=== PATIENT | female | born 1950 | race Caucasian/White ===

== ENCOUNTER → 2016-12-11 | Outpatient (CLI) | payer MEDICARE ==
[~2016-12-11] MED LIST: ALDACTONE50 MG PO; DIABETA2.5 MG PO; DIOVAN80 M1 PO; GLIPIZIDE10 M2 PO; LEVAQUIN750 M1 PO; NITROFURANTOIN100 M9 PO; OXYCODONE5 M1 PO; PRILOSEC20 MG; PRILOSEC20 MG PO; PROTONIX40 MG/PACK PO; Quinapril HCl20 MG PO; VALSARTAN80 MG PO; XANAX0.5 MG PO
[2016-12-11 11:05] LABS: BASO % 0.7 % (0.0-1.0); EOS # 0.1 10*3/uL (0.0-0.4); EOS % 2.4 % (1.0-4.0); HEMOGLOBIN 12.9 g/dl (12.0-16.0); LYMPH # 2.2 10*3/uL (1.3-4.4); LYMPH % 38.3 % (27.0-41.0); MEAN CELL VOLUME 86.2 fl (81.0-99.0); MEAN CORPUSCULAR HGB 29.3 pg (27.0-31.0); MEAN CORPUSCULAR HGB CONC 33.9 g/dl (33.0-37.0); MEAN PLATELET VOLUME 9.6 fl (9.6-12.3); MONO # 0.3 10*3/uL (0.1-1.0); MONO % 5.9 % (3.0-9.0); NEUT % 52.4 % (47.0-73.0); PLATELET COUNT AUTOMATED 233 10*3/uL (130-400); RED BLOOD COUNT 4.41 10*6/uL (4.10-5.10); RED CELL DISTRI WIDTH 12.9 % (0-14.5); WHITE BLOOD COUNT 5.8 10*3/uL (4.8-10.8)
[2016-12-11 11:21] LABS: HEMOGLOBIN A1c 8.1 % (4.8-5.6)
[2016-12-11 11:38] LABS: ALBUMIN 3.7 gm/dl (3.1-4.5); ALKALINE PHOSPHATASE 106 U/L (45-117); BILIRUBIN, DIRECT < 0.1 mg/dL (0.0-0.2); BILIRUBIN, TOTAL 0.4 mg/dl (0.2-1.0); BUN 15 mg/dl (7-24); CARBON DIOXIDE 25 mmol/L (21-32); CHLORIDE 109 mmol/L (98-107); EST GLOM FILT AFRICAN AMERICAN > 60 ml/min; GLUCOSE 205 mg/dL (65-99); POTASSIUM 4.8 mmol/L (3.5-5.1); SGOT/AST 36 IU/L (3-35); SGPT/ALT 53 U/L (12-78); SODIUM 141 mmol/L (136-145); TOTAL PROTEIN 6.9 gm/dL (6.4-8.2)
== END | disposition home or self-care (01) ==
LOC: LAB 10:40
PROVIDERS: Family Medicine
DX: R79.89 Other specified abnormal findings of blood chemistry (principal); E11.9 Type 2 diabetes mellitus without complications

== ENCOUNTER → 2017-06-07 | Outpatient (CLI) | payer MEDICARE ==
[2017-06-07 10:16] LABS: BASO % 0.6 % (0.0-1.0); EOS # 0.1 10*3/uL (0.0-0.4); EOS % 2.7 % (1.0-4.0); HEMATOCRIT 37.6 % (37.0-47.0); HEMOGLOBIN 12.5 g/dl (12.0-16.0); LYMPH # 1.7 10*3/uL (1.3-4.4); LYMPH % 35.6 % (27.0-41.0); MEAN CELL VOLUME 84.5 fl (81.0-99.0); MEAN CORPUSCULAR HGB 28.1 pg (27.0-31.0); MEAN CORPUSCULAR HGB CONC 33.2 g/dl (33.0-37.0); MEAN PLATELET VOLUME 9.7 fl (9.6-12.3); MONO # 0.3 10*3/uL (0.1-1.0); MONO % 6.9 % (3.0-9.0); NEUT # 2.6 10*3/uL (2.3-7.9); NEUT % 53.6 % (47.0-73.0); PLATELET COUNT AUTOMATED 250 10*3/uL (130-400); RED BLOOD COUNT 4.45 10*6/uL (4.10-5.10); RED CELL DISTRI WIDTH 13.2 % (0-14.5); WHITE BLOOD COUNT 4.8 10*3/uL (4.8-10.8)
[2017-06-07 10:24] LABS: ALKALINE PHOSPHATASE 116 U/L (45-117); BILIRUBIN, DIRECT 0.1 mg/dL (0.0-0.2); BUN 16 mg/dl (7-24); CHLORIDE 108 mmol/L (98-107); CHOLESTEROL 240 mg/dL (<200); CREATININE 0.74 mg/dL (0.55-1.02); HDL CHOLESTEROL 60 mg/dl (40-60); LDL CHOLESTEROL 154 mg/dL (9-159); POTASSIUM 4.3 mmol/L (3.5-5.1); SGOT/AST 24 IU/L (3-35); SGPT/ALT 33 U/L (12-78); SODIUM 143 mmol/L (136-145); THYROXINE (T4) TOTAL 7.4 ug/dl (4.8-13.9); TRIGLYCERIDES 129 mg/dl (<150); VLDL CHOLESTEROL 26 mg/dL (6-40)
== END | disposition home or self-care (01) ==
LOC: LAB 09:28
PROVIDERS: Family Medicine
DX: E11.9 Type 2 diabetes mellitus without complications (principal); I10 Essential (primary) hypertension

== ENCOUNTER → 2017-10-17 | Day surgery (SDC) | payer MEDICARE ==
[~2017-10-17] VITALS: Ht 167.6 cm; Wt 113.4 kg
[~2017-10-17] MED LIST changes: +ADVIL200 M1 PO; +GLIMEPIRIDE2 MG PO; +OXYCODONE HCL10 M1 PO; +TURMERIC 500 M1 EACH PO
--- NOTE | ~2017-10-17 | O ---
[place], [place] OPERATIVE NOTE NAME: AZIZA POLK UNIT #: [id number] ROOM: DOCTOR: CASA BACA MD BIRTHDATE: [birth year] DOS: 10/17/2017 INDENTIFICATION: The patient is a 66-year-old who was presented with chief complaint and personal history of colonic carcinoma, status post resection without chemoradiation. ALLERGIES: IVP DYE. FAMILY HISTORY: Noncontributory. PAST SURGICAL HISTORY: Carpal tunnel, and bilateral total knee. PAST MEDICAL HISTORY: Diabetes, hypertension, back pain. SOCIAL HISTORY: Nonsmoker, nonalcohol consumer. PROCEDURE: Today's procedure part of investigation is colonoscopy plus piecemeal polypectomy. PREMEDICATION: Propofol. SCOPE: Olympus Pixonic colonoscope 10L video. REPORT: After putting the patient in left lateral position and application of lubricant to the scope, the scope was introduced to the rectum and thereafter, under direct visualization, advanced through the length of colon of the base of cecum. Scope was gradually withdrawn from ascending, transverse, descending colon above the splenic flexure, early adenomatous polypoid lesion was identified. Piecemeal polypectomy removed. Air was suctioned out. The patient was extubated, tolerated the procedure well. IMPRESSION: A sessile colonic polyp at the splenic flexure, status post piecemeal polypectomy with a personal history of colonic CA status post resection of the carcinomatous polyp. PLAN AND DISCUSSION: High fiber fruit diet. ACTIVITY: Ad ly. FOLLOWUP: As outpatient routinely with you in office, p.r.n. visit with us. Follow-up colonoscopy in 10 years unless patient has symptoms for which follow-up should be sooner. I thank you very much indeed Dr. George for your kind referral. [place], [place] OPERATIVE NOTE NAME: AZIZA POLK UNIT #: [id number] ROOM: DOCTOR: CASA BACA MD BIRTHDATE: [birth year] CASA BACA MD CM:OPRECORD:OPERATIVE NOTE [id number] CASA BACA MD 10/29/17 1737 interface
[2017-10-17 08:08] VITALS: BP 147/48
[2017-10-17 09:13] VITALS: BP 96/32
[2017-10-17 09:28] VITALS: BP 106/43
[2017-10-17 09:41] VITALS: BP 117/61; BP 99/51
== END | disposition home or self-care (01) ==
LOC: SDC 10-11 08:00
DX: Z12.11 Encounter for screening for malignant neoplasm of colon (principal); K63.5 Polyp of colon; Z85.038 Personal history of other malignant neoplasm of large intestine; E11.9 Type 2 diabetes mellitus without complications; I10 Essential (primary) hypertension; Z98.890 Other specified postprocedural states; Z88.8 Allergy status to other drugs, medicaments and biological substances; Z90.49 Acquired absence of other specified parts of digestive tract; Z80.9 Family history of malignant neoplasm, unspecified; Z87.891 Personal history of nicotine dependence

== ENCOUNTER → 2017-11-19 | Outpatient (CLI) | payer MEDICARE ==
[2017-11-19 12:56] LABS: BASO % 0.7 % (0.0-1.0); EOS # 0.2 10*3/uL (0.0-0.4); EOS % 2.7 % (1.0-4.0); HEMOGLOBIN 12.6 g/dl (12.0-16.0); LYMPH # 2.2 10*3/uL (1.3-4.4); LYMPH % 40.8 % (27.0-41.0); MEAN CELL VOLUME 87.2 fl (81.0-99.0); MEAN CORPUSCULAR HGB 28.9 pg (27.0-31.0); MEAN CORPUSCULAR HGB CONC 33.2 g/dl (33.0-37.0); MONO # 0.4 10*3/uL (0.1-1.0); MONO % 6.9 % (3.0-9.0); NEUT # 2.7 10*3/uL (2.3-7.9); NEUT % 48.7 % (47.0-73.0); PLATELET COUNT AUTOMATED 241 10*3/uL (130-400); RED BLOOD COUNT 4.36 10*6/uL (4.10-5.10); WHITE BLOOD COUNT 5.5 10*3/uL (4.8-10.8)
[2017-11-19 13:08] LABS: ALBUMIN 4.1 gm/dl (3.1-4.5); ALKALINE PHOSPHATASE 90 U/L (45-117); BILIRUBIN, DIRECT 0.1 mg/dL (0.0-0.2); BUN 15 mg/dl (7-24); CHLORIDE 108 mmol/L (98-107); CHOLESTEROL 242 mg/dL (<200); CREATININE 0.76 mg/dL (0.55-1.02); HDL CHOLESTEROL 53 mg/dl (40-60); LDL CHOLESTEROL 162 mg/dL (9-159); POTASSIUM 4.6 mmol/L (3.5-5.1); SGOT/AST 21 IU/L (3-35); SGPT/ALT 34 U/L (12-78); SODIUM 143 mmol/L (136-145); TRIGLYCERIDES 137 mg/dl (<150); VLDL CHOLESTEROL 27 mg/dL (6-40)
== END | disposition home or self-care (01) ==
LOC: LAB 11:23 → RAD 11:30
PROVIDERS: Family Medicine
DX: Z13.820 Encounter for screening for osteoporosis (principal); E11.9 Type 2 diabetes mellitus without complications; E78.00 Pure hypercholesterolemia, unspecified; I10 Essential (primary) hypertension; N64.52 Nipple discharge; Z78.0 Asymptomatic menopausal state; Z85.038 Personal history of other malignant neoplasm of large intestine

== ENCOUNTER → 2017-11-22 | Outpatient (CLI) | payer MEDICARE | END | disposition home or self-care (01) | LOC: RAD 11-19 11:30 → MAMMO 02:59 | DX: N64.52 Nipple discharge (principal) ==

== ENCOUNTER → 2018-03-09 | Outpatient (CLI) | payer MEDICARE ==
[2018-03-09 11:45] LABS: BASO % 0.7 % (0.0-1.0); EOS # 0.2 10*3/uL (0.0-0.4); EOS % 2.8 % (1.0-4.0); HEMATOCRIT 38.5 % (37.0-47.0); LYMPH # 2.2 10*3/uL (1.3-4.4); LYMPH % 37.4 % (27.0-41.0); MEAN CELL VOLUME 85.7 fl (81.0-99.0); MEAN CORPUSCULAR HGB CONC 33.8 g/dl (33.0-37.0); MEAN PLATELET VOLUME 9.4 fl (9.6-12.3); MONO # 0.4 10*3/uL (0.1-1.0); MONO % 7.3 % (3.0-9.0); NEUT % 51.5 % (47.0-73.0); PLATELET COUNT AUTOMATED 235 10*3/uL (130-400); RED BLOOD COUNT 4.49 10*6/uL (4.10-5.10); RED CELL DISTRI WIDTH 12.6 % (0-14.5); WHITE BLOOD COUNT 5.8 10*3/uL (4.8-10.8)
[2018-03-09 12:12] LABS: ALBUMIN 3.9 gm/dl (3.1-4.5); ALKALINE PHOSPHATASE 103 U/L (45-117); BILIRUBIN, DIRECT 0.1 mg/dL (0.0-0.2); BUN 17 mg/dl (7-24); CHLORIDE 108 mmol/L (98-107); CREATININE 0.74 mg/dL (0.55-1.02); POTASSIUM 4.6 mmol/L (3.5-5.1); SGOT/AST 26 IU/L (3-35); SGPT/ALT 39 U/L (12-78); SODIUM 141 mmol/L (136-145); TOTAL PROTEIN 7.1 gm/dL (6.4-8.2)
== END | disposition home or self-care (01) ==
LOC: LAB 11:16
PROVIDERS: Family Medicine
DX: E11.9 Type 2 diabetes mellitus without complications (principal)

== ENCOUNTER → 2018-09-20 | Outpatient (CLI) | payer MEDICARE ==
[2018-09-20 19:21] LABS: BASO % 0.7 % (0.0-1.0); EOS # 0.1 10*3/uL (0.0-0.4); EOS % 2.6 % (1.0-4.0); HEMATOCRIT 37.1 % (37.0-47.0); HEMOGLOBIN 12.2 g/dl (12.0-16.0); LYMPH # 2.3 10*3/uL (1.3-4.4); LYMPH % 42.2 % (27.0-41.0); MEAN CELL VOLUME 89.8 fl (81.0-99.0); MEAN CORPUSCULAR HGB 29.5 pg (27.0-31.0); MEAN CORPUSCULAR HGB CONC 32.9 g/dl (33.0-37.0); MEAN PLATELET VOLUME 10.5 fl (9.6-12.3); MONO # 0.4 10*3/uL (0.1-1.0); MONO % 6.9 % (3.0-9.0); NEUT # 2.5 10*3/uL (2.3-7.9); NEUT % 47.4 % (47.0-73.0); PLATELET COUNT AUTOMATED 255 10*3/uL (130-400); RED BLOOD COUNT 4.13 10*6/uL (4.10-5.10); RED CELL DISTRI WIDTH 13.2 % (0-14.5); WHITE BLOOD COUNT 5.4 10*3/uL (4.8-10.8)
[2018-09-20 19:42] LABS: ALBUMIN 4.1 gm/dl (3.1-4.5); ALKALINE PHOSPHATASE 91 U/L (45-117); BILIRUBIN, DIRECT < 0.1 mg/dL (0.0-0.2); BUN 22 mg/dl (7-24); CHLORIDE 108 mmol/L (98-107); CREATININE 0.93 mg/dL (0.55-1.02); POTASSIUM 3.8 mmol/L (3.5-5.1); SGOT/AST 23 IU/L (3-35); SGPT/ALT 30 U/L (12-78); SODIUM 142 mmol/L (136-145)
== END | disposition home or self-care (01) ==
LOC: LAB 17:19
PROVIDERS: Family Medicine
DX: E11.9 Type 2 diabetes mellitus without complications (principal)

== ENCOUNTER → 2018-12-19 | Outpatient (CLI) | payer MEDICARE | END | disposition home or self-care (01) | LOC: MAMMO 12:36 | DX: N64.52 Nipple discharge (principal) ==

== ENCOUNTER → 2018-12-23 | Outpatient (CLI) | payer MEDICARE ==
[2018-12-23 19:27] LABS: BASO # 0.1 10*3/uL (0.0-0.1); BASO % 1.1 % (0.0-1.0); EOS # 0.2 10*3/uL (0.0-0.4); EOS % 3.5 % (1.0-4.0); HEMATOCRIT 37.5 % (37.0-47.0); HEMOGLOBIN 12.2 g/dl (12.0-16.0); LYMPH # 2.6 10*3/uL (1.3-4.4); LYMPH % 40.4 % (27.0-41.0); MEAN CELL VOLUME 89.5 fl (81.0-99.0); MEAN CORPUSCULAR HGB 29.1 pg (27.0-31.0); MEAN CORPUSCULAR HGB CONC 32.5 g/dl (33.0-37.0); MEAN PLATELET VOLUME 10.2 fl (9.6-12.3); MONO # 0.5 10*3/uL (0.1-1.0); MONO % 7.9 % (3.0-9.0); NEUT % 46.8 % (47.0-73.0); PLATELET COUNT AUTOMATED 253 10*3/uL (130-400); RED BLOOD COUNT 4.19 10*6/uL (4.10-5.10); WHITE BLOOD COUNT 6.5 10*3/uL (4.8-10.8)
[2018-12-23 19:55] LABS: ALBUMIN 4.1 gm/dl (3.1-4.5); ALKALINE PHOSPHATASE 80 U/L (45-117); BILIRUBIN, DIRECT 0.1 mg/dL (0.0-0.2); BUN 13 mg/dl (7-24); CHLORIDE 108 mmol/L (98-107); CREATININE 0.69 mg/dL (0.55-1.02); POTASSIUM 4.4 mmol/L (3.5-5.1); SGOT/AST 16 IU/L (3-35); SGPT/ALT 28 U/L (12-78); SODIUM 141 mmol/L (136-145)
== END | disposition home or self-care (01) ==
LOC: LAB 15:42
PROVIDERS: Family Medicine
DX: E11.9 Type 2 diabetes mellitus without complications (principal)

== ENCOUNTER → 2019-05-29 | Outpatient (CLI) | payer MEDICARE ==
[2019-05-29 10:38] LABS: BASO % 0.7 % (0.0-1.0); EOS # 0.2 10*3/uL (0.0-0.4); EOS % 3.1 % (1.0-4.0); HEMATOCRIT 38.9 % (37.0-47.0); HEMOGLOBIN 12.5 g/dl (12.0-16.0); LYMPH # 2.2 10*3/uL (1.3-4.4); MEAN CELL VOLUME 89.8 fl (81.0-99.0); MEAN CORPUSCULAR HGB 28.9 pg (27.0-31.0); MEAN CORPUSCULAR HGB CONC 32.1 g/dl (33.0-37.0); MEAN PLATELET VOLUME 9.9 fl (9.6-12.3); MONO # 0.4 10*3/uL (0.1-1.0); NEUT % 51.9 % (47.0-73.0); PLATELET COUNT AUTOMATED 252 10*3/uL (130-400); RED BLOOD COUNT 4.33 10*6/uL (4.10-5.10); RED CELL DISTRI WIDTH 12.8 % (0-14.5); WHITE BLOOD COUNT 5.8 10*3/uL (4.8-10.8)
[2019-05-29 11:15] LABS: ALBUMIN 4.1 gm/dl (3.1-4.5); ALKALINE PHOSPHATASE 79 U/L (45-117); BUN 20 mg/dl (7-24); CHLORIDE 111 mmol/L (98-107); CHOLESTEROL 218 mg/dL (<200); CREATININE 0.91 mg/dL (0.55-1.02); HDL CHOLESTEROL 57 mg/dl (40-60); LDL CHOLESTEROL 125 mg/dL (9-159); POTASSIUM 4.4 mmol/L (3.5-5.1); SGOT/AST 17 IU/L (3-35); SGPT/ALT 29 U/L (12-78); SODIUM 141 mmol/L (136-145); TOTAL PROTEIN 6.9 gm/dL (6.4-8.2); TRIGLYCERIDES 181 mg/dl (<150); VLDL CHOLESTEROL 36 mg/dL (6-40)
== END | disposition home or self-care (01) ==
LOC: LAB 09:59
PROVIDERS: Internal Medicine
DX: E11.9 Type 2 diabetes mellitus without complications (principal)

== ENCOUNTER → 2019-10-15 | Outpatient (CLI) | payer MEDICARE ==
[2019-10-15 15:40] LABS: BASO # 0.1 10*3/uL (0.0-0.1); BASO % 0.8 % (0.0-1.0); EOS # 0.2 10*3/uL (0.0-0.4); EOS % 2.7 % (1.0-4.0); HEMATOCRIT 37.4 % (37.0-47.0); LYMPH # 3.1 10*3/uL (1.3-4.4); LYMPH % 42.2 % (27.0-41.0); MEAN CORPUSCULAR HGB 29.4 pg (27.0-31.0); MEAN CORPUSCULAR HGB CONC 33.4 g/dl (33.0-37.0); MEAN PLATELET VOLUME 9.7 fl (9.6-12.3); MONO # 0.7 10*3/uL (0.1-1.0); NEUT # 3.3 10*3/uL (2.3-7.9); NEUT % 44.9 % (47.0-73.0); PLATELET COUNT AUTOMATED 274 10*3/uL (130-400); RED BLOOD COUNT 4.25 10*6/uL (4.10-5.10); RED CELL DISTRI WIDTH 12.6 % (0-14.5); WHITE BLOOD COUNT 7.4 10*3/uL (4.8-10.8)
[2019-10-15 16:01] LABS: ALBUMIN 3.9 gm/dl (3.1-4.5); CREATININE 1.12 mg/dL (0.55-1.02); POTASSIUM 4.3 mmol/L (3.5-5.1); TOTAL PROTEIN 7.3 gm/dL (6.4-8.2)
== END | disposition home or self-care (01) ==
LOC: LAB 15:05
PROVIDERS: Internal Medicine
DX: E11.9 Type 2 diabetes mellitus without complications (principal)

== ENCOUNTER 2020-01-27 14:05 | Inpatient (IN) | payer MEDICARE ==
[~2020-01-27] VITALS: Ht 167.6 cm; Wt 109.5 kg
[2020-01-27 14:06] VITALS: BP 135/57
[2020-01-27 19:15] VITALS: BP 140/78
--- NOTE | 2020-01-27 19:52 | NUR ---
24 HR chart check completed.
[2020-01-27 20:00] VITALS: BP 132/40
--- NOTE | 2020-01-27 20:00 | NUR ---
Time: 1999 A 69 year old F admitted to under services of KYA BLANDON DO. Pt. arrived via bed from ER. Chief complaint: RIGHT LEG PAIN X 2 MONTHS, WORSENING THIS AM. UNABLE TO AMBULATE. MARTA BOWEN
[2020-01-27] MEDS ORDERED: METFORMIN XR500 MG PO (20:10)
[2020-01-27] MEDS ORDERED: TYLENOL325 M2 PO (20:11)
[2020-01-27 20:38] LABS: BASO % 0.5 % (0.0-1.0); EOS % 0.3 % (1.0-4.0); HEMATOCRIT 35.2 % (37.0-47.0); LYMPH # 1.3 10*3/uL (1.3-4.4); LYMPH % 20.9 % (27.0-41.0); MEAN CELL VOLUME 86.1 fl (81.0-99.0); MEAN CORPUSCULAR HGB 28.4 pg (27.0-31.0); MEAN PLATELET VOLUME 9.7 fl (9.6-12.3); MONO # 0.4 10*3/uL (0.1-1.0); MONO % 5.7 % (3.0-9.0); NEUT # 4.6 10*3/uL (2.3-7.9); NEUT % 72.3 % (47.0-73.0); PLATELET COUNT AUTOMATED 275 10*3/uL (130-400); RED BLOOD COUNT 4.09 10*6/uL (4.10-5.10); RED CELL DISTRI WIDTH 12.7 % (0-14.5); WHITE BLOOD COUNT 6.3 10*3/uL (4.8-10.8)
[2020-01-27 20:53] LABS: ALBUMIN 3.9 gm/dl (3.1-4.5); ALKALINE PHOSPHATASE 72 U/L (45-117); BUN 16 mg/dl (7-24); CHLORIDE 109 mmol/L (98-107); CREATININE 0.79 mg/dL (0.55-1.02); POTASSIUM 3.8 mmol/L (3.5-5.1); SGOT/AST 14 IU/L (3-35); SGPT/ALT 23 U/L (12-78); SODIUM 141 mmol/L (136-145); TOTAL PROTEIN 6.8 gm/dL (6.4-8.2)
--- NOTE | 2020-01-27 20:55 | NUR ---
DR LEDBETTER IN TO ASSESS PATIENT AND DISCUSS PLAN OF CARE
--- NOTE | 2020-01-27 20:57 | NUR ---
MEDICATED WITH NORCO PER PRN ORDER FOR COMPLAINTS OF RIGHT LEG PAIN RATING A 7. CALL LIGHT WITHIN REACH. WILL MONITOR
--- NOTE | 2020-01-27 21:30 | NUR ---
EARLIER MEDS APPEAR EFFECTIVE. SLEEPING. RESPIRATIONS EASY. CALL LIGHT WITHIN REACH
[2020-01-28] VITALS: BP 113/71; BP 116/40
--- NOTE | 2020-01-28 | NUR ---
SLEEPING. NO DISTRESS NOTED. RESPIRATIONS EASY. VSS. CALL LIGHT WITHIN REACH
--- NOTE | 2020-01-28 03:47 | NUR ---
C/O RIGHT LEG PAIN RATING A 10, MEDICATED WITH NORCO PER PRN ORDER. CALL LIGHT WITHIN REACH. WILL MONITOR
--- NOTE | 2020-01-28 04:30 | NUR ---
STATES EARLIER PERCOCET HELPING WITH PAIN. CALL LIGHT WITHIN REACH. NO FURTHER VOICED COMPLAINTS
--- NOTE | 2020-01-28 06:00 | NUR ---
BSG 156, DECLINES SS COVERAGE
[2020-01-28 06:23] LABS: BASO % 0.5 % (0.0-1.0); EOS # 0.1 10*3/uL (0.0-0.4); EOS % 1.1 % (1.0-4.0); HEMATOCRIT 35.5 % (37.0-47.0); LYMPH # 1.8 10*3/uL (1.3-4.4); LYMPH % 27.5 % (27.0-41.0); MEAN CORPUSCULAR HGB 28.7 pg (27.0-31.0); MEAN PLATELET VOLUME 9.9 fl (9.6-12.3); MONO # 0.6 10*3/uL (0.1-1.0); NEUT % 61.6 % (47.0-73.0); PLATELET COUNT AUTOMATED 264 10*3/uL (130-400); RED BLOOD COUNT 4.08 10*6/uL (4.10-5.10); RED CELL DISTRI WIDTH 12.6 % (0-14.5); WHITE BLOOD COUNT 6.4 10*3/uL (4.8-10.8)
[2020-01-28 06:41] LABS: ALBUMIN 3.6 gm/dl (3.1-4.5); ALKALINE PHOSPHATASE 65 U/L (45-117); BUN 15 mg/dl (7-24); CHLORIDE 109 mmol/L (98-107); CHOLESTEROL 213 mg/dL (<200); CREATININE 0.72 mg/dL (0.55-1.02); HDL CHOLESTEROL 51 mg/dl (40-60); LDL CHOLESTEROL 125 mg/dL (9-159); POTASSIUM 4.1 mmol/L (3.5-5.1); SGOT/AST 12 IU/L (3-35); SGPT/ALT 24 U/L (12-78); SODIUM 141 mmol/L (136-145); TOTAL PROTEIN 6.8 gm/dL (6.4-8.2); TRIGLYCERIDES 184 mg/dl (<150); VLDL CHOLESTEROL 37 mg/dL (6-40)
[2020-01-28 08:00] VITALS: BP 132/46
--- NOTE | 2020-01-28 08:03 | NUR ---
PT REQUESTED AND RECEIVED PO NORCO PER PRN ORDER FOR C/O RIGHT HIP AND LEG PAIN. RATES PAIN 10/10. WILL MONITOR EFFECTIVENESS. ICE PACK PROVIDED AT THIS TIME FOR COMFORT. DR.ZAHEER RICHMOND.
--- NOTE | 2020-01-28 08:08 | NUR ---
IN TO SEE PATIENT.
--- NOTE | 2020-01-28 08:59 | NUR ---
PT GIVEN IV MORPHINE 2MG SLOWLY PER PRN ORDER FOR C/O RIGHT HIP PAIN. RATES PAIN 8/10. WILL MONITOR EFFECTIVENESS. IN TO SEE PATIENT AT THIS TIME.
--- NOTE | 2020-01-28 09:00 | NUR ---
Enterprise Records Analyst in to talk to patient. Patient states lives at home with alone. There are no steps in the home. Physician: gertrudis mishra [facility]: [facility] Home health services: none Patient's level of ADLs: MINIMAL ASSIST Patient has working utilities: all working DME: cane Follow-up physician's appointment after d/c: will be made by hospitalist nurse director upon discharge Does patient want to access PORTAL?: n Discharge plan discussed with patient, she states she lives at home alone. she is normally independent in adls and ambulation, drives, has a cane but only uses it when the pain in her back is severe. discussed ith her a discharge plan and if not able to ambulate going to a short term [facility] for 5 days of rehab prior to returning home, she was agreeable to this, given choice of facilities she chose [facility] . referral will be made to [facility] in the event she needs to be discharged to a short term skilled, case management will follow. ELVIRA PARSON
--- NOTE | 2020-01-28 09:35 | NUR ---
Occupational Therapy evaluation completed on 4 with full eval to follow. Precautions include fall risk, severe radha pain, back precautions, moderate complexity level 38070. Recommend home alone w/ HH SN,OT,PT if back pain controlled. Pt left in bed with call light in reach. Thank you for this referral. Denisse Reed OTR/L
--- NOTE | 2020-01-28 09:51 | NUR ---
FLEXERIL 1 TIME DOSE GIVEN PER ORDER. WILL MONITOR EFFECTIVENESS.
--- NOTE | 2020-01-28 09:59 | NUR ---
EARLIER MEDS RELIEVING PAIN PER PT. WILL CONTINUE TO MONITOR.
--- NOTE | 2020-01-28 10:30 | NUR ---
DEMOLITION CRANE OPERATOR FAXED NEW REFERRAL TO [facility]. ADMISSION WILL REQUIRE 3 NIGHT STAY AND COVID RESULTS.
--- NOTE | 2020-01-28 11:24 | NUR ---
PT REFUSING MRI. NOTIFIED.
--- NOTE | 2020-01-28 11:30 | NUR ---
BSG 181. PATIENT DELINES S/S COVERAGE.
[2020-01-28 12:00] VITALS: BP 122/50
--- NOTE | 2020-01-28 13:47 | NUR ---
PT SITTING UP IN BED, EATING LUNCH. NO VOICED COMPLAINTS AT THIS TIME. WILL CONTINUE TO MONITOR. CALL LIGHT WITHIN REACH.
--- NOTE | 2020-01-28 14:34 | NUR ---
IN TO SEE PATIENT.
[2020-01-28] MEDS ORDERED: VITAMIN D350 MC2 PO (15:07)
[2020-01-28] MEDS ORDERED: MEDROL DOSEPAK4 MG PO (15:07)
[2020-01-28] MEDS ORDERED: NORCO 5-325 TA1 EACH PO (15:07)
--- NOTE | 2020-01-28 15:30 | NUR ---
PATIENT REQUESTING TO STAY AND WILL PROCEED WITH THE ORDERED MRI. CALLED AT THIS TIME BECAUSE PATIENT IS DISCHARGED. AWAITING RETURN PHONE CALL.
--- NOTE | 2020-01-28 15:45 | NUR ---
OKAY FOR PATIENT TO STAY THE NIGHT AND WILL PROCEED WITH THE MRI TOMORROW AM. DISCHARGE IS CANCELLED FOR TODAY PER .
[2020-01-28 16:00] VITALS: BP 126/64
[2020-01-28 20:00] VITALS: BP 132/53
--- NOTE | 2020-01-28 20:00 | NUR ---
PT SEEN AND ASSESSED. PT RESTING QUIETLY IN BED W/O COMPLAINTS AT THIS TIME. PT IS FOR MRI TOMORROW. PAIN CONTROLLED AT THIS TIME.
--- NOTE | 2020-01-28 21:49 | NUR ---
PT GIVEN SCHEDULED PAIN MEDICATION. PT REPORTS PAIN 4/10.
--- NOTE | 2020-01-28 22:49 | NUR ---
PT RESTING COMFORTABLY IN BED. PT VERBALIZES PAIN CONTROLLED AT 2/10. NO SIDE EFFECTS NOTED AT THIS TIME.
[2020-01-29] VITALS: BP 131/56
--- NOTE | 2020-01-29 00:35 | NUR ---
24 HR chart check completed.
--- NOTE | 2020-01-29 00:51 | NUR ---
24 HR chart check completed.
[2020-01-29 08:00] VITALS: BP 134/40
--- NOTE | 2020-01-29 09:13 | NUR ---
CM in to see patient. Discussed short term rehab at [facility] and she is agreeable. dry house worker notified.
--- NOTE | 2020-01-29 09:14 | NUR ---
PATIENT GIVEN FLEXERIL AND FENTANYL PER ONE-TIME DOSE ORDERS AND FOR UNCONTROLLED PAIN 10/10 PRIOR TO MRI. WILL MONITOR.
--- NOTE | 2020-01-29 10:14 | NUR ---
PATIENT'S PAIN IS MUCH MORE CONTROLLED AT THIS TIME. PRN MEDICATION EFFECTIVE.
--- NOTE | 2020-01-29 11:39 | NUR ---
OT NOTE Upon arrival pt was sitting EOB agreeable to 15 minute OT session. Identified by name and date of with no complaints at rest. Sit-stand from EOB CGA with w/w for UB support and safety. Functional mobility from EOB to bathroom CGA with w/w. Transferring on and off commode CGA with grab bar and w/w. Functional mobility from bathroom to EOB CGA with w/w. Pt demonstrated how she takes off and puts on hospital socks using compensatory method. Pt educated on "log roll" when getting out of bed, pt stated "thats what i do at home". Pt left at EOB with call light in reach. Continue with POC when able. WADE Ferguson/PACHECO Foley/Jammie
[2020-01-29 12:00] VITALS: BP 117/50
--- NOTE | 2020-01-29 12:33 | NUR ---
PHYSICAL THERAPY Physical Therapy evaluation completed on 4th floor with full evaluation to follow. Recommend physical therapy per plan of care and SNF upon discharge. Thank you for this referral. Verito Way PT
--- NOTE | 2020-01-29 14:53 | NUR ---
NAIL TECHNICIAN TEACHER FAXED UPDATES TO [facility].
[2020-01-29 16:00] VITALS: BP 140/59
[2020-01-29 20:00] VITALS: BP 132/55
--- NOTE | 2020-01-29 21:55 | NUR ---
PT SEEN AND ASSESSED. PT STATES HER PAIN HAS BEEN CONSISTENT TODAY 5-10/14. PT WAS GIVEN SCHEDULED TORADOL. PT DENIES ANY C/O AT THIS TIME. PT DOES HAVE SOME SWELLING TO HER BILATERAL PEDAL AND ANKLE. PT STATES THIS IS NOT NEW AND THAT IT WILL GO AWAY. PT INSTRUCTED ON FLUID RETENTION INTERVENTIONS SUCH ELEVATION. PT VERBLAIZES HER UNDERSTANDING OF THIS EDUCATION. PT BS 197 AND REQUIRED INSULIN SS DOSING.
[2020-01-30] VITALS: BP 135/52
--- NOTE | 2020-01-30 01:54 | NUR ---
24 HR chart check completed.
--- NOTE | 2020-01-30 05:56 | NUR ---
PT GIVEN SCHEDULED TORADOL. PT STATES PAIN IS 9/10 SHE ATTEMPTED WALKING A DISTANCE OF ABOUT 50 FEET TO THE BATHROOM. PT INSTRUCTED ON SAFETY.
[2020-01-30 08:00] VITALS: BP 136/68
--- NOTE | 2020-01-30 08:40 | NUR ---
OT NOTE Upon arrival pt was side lying in bed agreeable to 10 minute OT session. Identified by name and date of with complaints of 6/10 low back pain. Transferring to EOB SBA. Pt able to south B hospital socks at SBA. Sit-stand from EOB SBA with w/w for safety and UB support. Functional mobility from EOB to bathroom SBA with w/w. Transferring on and off commode SBA with grab bar and w/w for safety. Functional mobility from bathroom to EOB SBA with w/w. Pt complained of 10/10 low back pain at exertion. no further tasks completed due to pain. Pt positioned self in bed. call light in reach. Continue d/c recommended HH. WADE Ferguson/PACHECO Foley/Jammie
--- NOTE | 2020-01-30 08:53 | NUR ---
PT MEDICATED WITH MILK OF MAG UPON REQUEST FOR COMPLAINTS OF CONSTIPATION, WILL MONITOR FOR EFFECTIVENESS.
--- NOTE | 2020-01-30 10:26 | NUR ---
[facility] found a dx thats not documented in the DR note, but on a test that was done. Per [facility] patient can go to their facility today if medically stable. TIER IN informed Dr. Lam of this change.
--- NOTE | 2020-01-30 10:44 | NUR ---
DOUBLE NEEDLE STITCHER COMPLETED HENS.
--- NOTE | 2020-01-30 11:02 | NUR ---
PATIENT COVID RESULTS ARE PENDING. BRAKE SHOE REBUILDER SPOKE WITH [facility] WHO STATED THIS WAS OKAY AND PATIENT CAN STILL GO TODAY. [facility] IS CHECKING ON TRANSPORTATION. BRAKE SHOE REBUILDER EMAILED DISCHARGE ORDERS FAX/PHONE LINES ARE DOWN.
--- NOTE | 2020-01-30 11:15 | NUR ---
[facility] IS ABLE TO TRANSPORT THE PATIENT AT 12:00PM TODAY. TAI BROWN IS AWARE. CHEMICAL ENGRAVER ATTEMPTED TO CALL PATIENTS DAUGHTER, NO ANSWER, MAILBOX IS FULL.
--- NOTE | 2020-01-30 12:05 | NUR ---
Discharge instructions reviewed with patient/family. Patient receptive and verbalizes understanding. Follow-up care arranged. Written instructions given to patient/family. HEPLOCK DISCONTINUED. PRESCRIPTION IN PACKET. REPORT CALLED TO [facility]. JACKELYN LAGUNA
--- NOTE | 2020-01-30 14:55 | NUR ---
PHYSICAL THERAPY TREATMENT TIME: IN 08:20 AM - OUT 08:35 AM 15 MINUTES TOTAL PRESENTATION: Patient presented to therapy in L Side-lying in bed Head of bed nearly flat Bed alarm off 4 liters of spO2 VIA NASAL CANULA COMPLAINTS: 6/10 IN LOW BACK WITH RADICULOPATHY DOWN THE R LE 10/10 PAIN LEVEL POST THERAPY SESSION WB BEARING STATUS: No wt. bearing restrictions Assistive device: Wh Walker TRANSFERS: Supine to sitting on EOB: SBA Sitting on EOB: SBA STS from EOB: SBA-CGA STS from Commode: CGA-SBA TREATMENT: GAIT with Wh Walker and CGA for 20' x 2 with 4 liters of spO2 RESPONSE TO TREATMENT: Patient tolerated therapy session with an increased pain level of 10/10 in the low back and R LE. Patient unable to perform any further therapy due to significant increased pain in the low back and R LE. CONCLUSION: Patient was left in supine in bed with call light within reach and bed alarm activated. RUTH LEONARD SUGAR SAMPLER
--- NOTE | 2020-02-02 08:12 | NUR ---
PHYSICAL THERAPY CO-SIGN I approve of the Physical Therapy notes written above. GABE PINON PT, DPT
--- NOTE | 2020-02-02 15:41 | NUR ---
OCCUPATIONAL THERAPY CO-SIGN I approve of the Occupational Therapy notes written above. AZIZA MORTON OTR/Jammie
== END 2020-01-30 12:05 | DRG 552 ==
LOC: ED 14:05 → 4E 18:07 → EDHOLD 18:07 → 4E 19:47
PROVIDERS: Internal Medicine; ADMIT Student in an Organized Health Care Education/Training Program; ATTEND Student in an Organized Health Care Education/Training Program
DX: M48.061 Spinal stenosis, lumbar region without neurogenic claudication (principal); F41.9 Anxiety disorder, unspecified; D64.9 Anemia, unspecified; E87.8 Other disorders of electrolyte and fluid balance, not elsewhere classified; F43.20 Adjustment disorder, unspecified; R00.1 Bradycardia, unspecified; E11.65 Type 2 diabetes mellitus with hyperglycemia; E55.9 Vitamin D deficiency, unspecified; M51.26 Other intervertebral disc displacement, lumbar region

== ENCOUNTER → 2020-05-18 | Outpatient (CLI) | payer MEDICARE ==
[~2020-05-18] MED LIST changes: +MEDROL DOSEPAK4 MG PO; +METFORMIN XR500 MG PO; +NORCO 5-325 TA1 EACH PO; +TYLENOL325 M2 PO; +VITAMIN D350 MC2 PO
[2020-05-18 15:25] LABS: BASO # 0.1 10*3/uL (0.0-0.1); EOS # 0.2 10*3/uL (0.0-0.4); EOS % 2.6 % (1.0-4.0); HEMATOCRIT 37.2 % (37.0-47.0); LYMPH # 2.1 10*3/uL (1.3-4.4); LYMPH % 33.7 % (27.0-41.0); MEAN CELL VOLUME 89.6 fl (81.0-99.0); MEAN CORPUSCULAR HGB 28.7 pg (27.0-31.0); MEAN PLATELET VOLUME 9.8 fl (9.6-12.3); MONO # 0.5 10*3/uL (0.1-1.0); MONO % 7.9 % (3.0-9.0); NEUT # 3.4 10*3/uL (2.3-7.9); NEUT % 54.5 % (47.0-73.0); PLATELET COUNT AUTOMATED 266 10*3/uL (130-400); RED BLOOD COUNT 4.15 10*6/uL (4.10-5.10); RED CELL DISTRI WIDTH 12.7 % (0-14.5); WHITE BLOOD COUNT 6.2 10*3/uL (4.8-10.8)
[2020-05-18 16:03] LABS: ALBUMIN 4.3 gm/dl (3.1-4.5); ALKALINE PHOSPHATASE 100 U/L (45-117); BUN 27 mg/dl (7-24); CHLORIDE 109 mmol/L (98-107); CREATININE 0.94 mg/dL (0.55-1.02); POTASSIUM 4.3 mmol/L (3.5-5.1); SGOT/AST 18 IU/L (3-35); SGPT/ALT 29 U/L (12-78); SODIUM 140 mmol/L (136-145); TOTAL PROTEIN 7.2 gm/dL (6.4-8.2)
== END | disposition home or self-care (01) ==
LOC: LAB 14:34
PROVIDERS: ATTEND Internal Medicine
DX: E11.9 Type 2 diabetes mellitus without complications (principal)

== ENCOUNTER → 2022-01-26 | Outpatient (CLI) | payer MEDICARE | END | disposition home or self-care (01) | LOC: MAMMO 13:31 | PROVIDERS: ATTEND Internal Medicine | DX: Z12.31 Encounter for screening mammogram for malignant neoplasm of breast (principal); N63.11 Unspecified lump in the right breast, upper outer quadrant ==

== ENCOUNTER → 2022-03-01 | Outpatient (CLI) | payer MEDICARE | END | disposition home or self-care (01) | LOC: US 14:48 | PROVIDERS: ATTEND Internal Medicine | DX: N60.01 Solitary cyst of right breast (principal); R92.8 Other abnormal and inconclusive findings on diagnostic imaging of breast; N64.9 Disorder of breast, unspecified ==

== ENCOUNTER → 2023-04-04 | Outpatient (CLI) | payer OTHER | END | disposition home or self-care (01) | LOC: MAMMO 04-02 11:30 | PROVIDERS: ATTEND Nurse Practitioner Family | DX: Z12.31 Encounter for screening mammogram for malignant neoplasm of breast (principal) ==

== ENCOUNTER → 2023-11-15 | Outpatient (CLI) | payer MEDICARE | END | disposition home or self-care (01) | LOC: LAB 15:40 | PROVIDERS: ATTEND Family Medicine | DX: E83.52 Hypercalcemia (principal) ==

== ENCOUNTER → 2024-06-18 | Outpatient (CLI) | payer MEDICARE | END | disposition home or self-care (01) | LOC: MAMMO 11:22 | PROVIDERS: ATTEND Family Medicine | DX: Z12.31 Encounter for screening mammogram for malignant neoplasm of breast (principal); N64.89 Other specified disorders of breast ==

== ENCOUNTER → 2024-07-03 | Outpatient (CLI) | payer MEDICARE | END | disposition home or self-care (01) | LOC: US 13:18 | PROVIDERS: ATTEND Family Medicine | DX: N64.89 Other specified disorders of breast (principal); R92.8 Other abnormal and inconclusive findings on diagnostic imaging of breast ==

== ENCOUNTER → 2024-12-30 | Outpatient (CLI) | payer MEDICARE | LOC: CARD 14:34 | PROVIDERS: ATTEND Family Medicine | DX: I34.0 Nonrheumatic mitral (valve) insufficiency (principal); R42 Dizziness and giddiness ==

== ENCOUNTER → 2025-01-06 | Outpatient (CLI) | payer MEDICARE | LOC: SDC 02:00 → EDSTATUS 11:00 | PROVIDERS: ATTEND Family Medicine | DX: N63.20 Unspecified lump in the left breast, unspecified quadrant (principal); N64.89 Other specified disorders of breast; R92.322 Mammographic fibroglandular density, left breast; R92.8 Other abnormal and inconclusive findings on diagnostic imaging of breast ==

== ENCOUNTER → 2025-02-05 | Outpatient (CLI) | payer MEDICARE | END | disposition home or self-care (01) | LOC: US 02:21 | PROVIDERS: ATTEND Internal Medicine Nephrology | DX: N28.1 Cyst of kidney, acquired (principal); N18.31 Chronic kidney disease, stage 3a ==

== ENCOUNTER → 2025-03-09 | Outpatient (CLI) | payer MEDICARE ==
[2025-03-09 12:19] LABS: BUN 15 mg/dl (9-23); LDL CHOLESTEROL 150 mg/dL (9-159); SGPT/ALT 9 U/L (5-49)
== END | disposition home or self-care (01) ==
LOC: LAB 11:32
PROVIDERS: ATTEND Internal Medicine Endocrinology, Diabetes & Metabolism
DX: E11.9 Type 2 diabetes mellitus without complications (principal); E78.2 Mixed hyperlipidemia; E55.9 Vitamin D deficiency, unspecified